=== PATIENT | female | born 1975 | race Two or more races ===

== ENCOUNTER 2017-05-21 13:15 | Emergency (ER) | payer OTHER ==
[~2017-05-21] VITALS: Ht 160 cm; Wt 63.5 kg
[2017-05-21] MEDS ORDERED: LIDO:MAALOX:DONNATAL 1:1:1 15 ML SINGLE DOSE SWSW ONE (13:45)
--- NOTE | 2017-05-21 13:58 | EKG ---
[facility] [address] [place] [address] Test Date: 2017-05-21 Test Time: 13:50:59 Pat Name: JOSE ARMANDO CALDERON Department: Room: Gender: F [employer]: : [id number] Requested By: TRAN ANDRADE Order Number: [id number] Reading MD: Wyatt Gonzalez Measurements Intervals [place] Rate: 73 P: 0 DC: 138 QRS: -7 QRSD: 72 T: 27 QT: 382 QTc: 424 Interpretive Statements SINUS RHYTHM Electronically Signed On 05-24-2017 11:25:27 CDT by Wyatt Gonzalez
[2017-05-21 14:04] LABS: CALCIUM 9.4 mg/dL (8.5-10.1); CREATININE 0.6 mg/dL (0.6-1.0); GFR 110.2; POTASSIUM 3.8 mmol/L (3.5-5.1)
[2017-05-21 14:07] LABS: BILIRUBIN,URINE NEGATIVE (NEG); GLUCOSE,URINE NEGATIVE (NEG); NITRITE,URINE NEGATIVE (NEG); PH,URINE 5.5; PROTEIN,URINE NEGATIVE (NEG-TRACE); UROBILINOGEN,URINE 0.2 mg/dL (0.2 mg/dL)
[2017-05-21 14:08] LABS: BASO % 0 % (0-3); EOS % 1 % (0-3); HEMATOCRIT 42.3 % (36.0-47.0); HEMOGLOBIN 13.8 g/dL (12.0-15.5); LYMPH # 1.5 x10^3/uL (1.0-4.8); LYMPH % 9 % (24-48); MEAN CORPUSCULAR HEMOGLOBIN 28 pg (25-35); MEAN CORPUSCULAR HGB CONC 33 g/dL (31-37); MEAN CORPUSCULAR VOLUME 86 fL (79-100); MONO % 4 % (0-9); NEUT % 87 % (31-73); PLATELET COUNT 276 x10^3/uL (140-400); RED BLOOD COUNT 4.92 x10^6/uL (3.50-5.40); WHITE BLOOD COUNT 16.6 x10^3/uL (4.0-11.0)
[2017-05-21 14:10] LABS: ALBUMIN 4.3 g/dL (3.4-5.0); ALBUMIN/GLOBULIN RATIO 1.2 (1.0-1.7); TOTAL BILIRUBIN 0.5 mg/dL (0.2-1.0); TOTAL PROTEIN 7.8 g/dL (6.4-8.2)
[2017-05-21 14:23] LABS: BACTERIA,URINE 0 /HPF (0-FEW); SQUAMOUS EPITHELIAL CELL,UR MOD /LPF
[2017-05-21 15:28] LABS: % EOS 1 % (0-5); PLT ESTIMATE ADEQUATE (ADEQUATE)
[2017-05-21 15:59] VITALS: BP 115/76
--- NOTE | 2017-05-21 16:05 | RAD ---
Indication right upper quadrant abdominal pain Grayscale imaging was performed. Examination was targeted to the right upper quadrant. The gallbladder appears normal. The visualized pancreas appears unremarkable. The abdominal aorta and visualized inferior vena cava appear normal. No focal mass is seen in the visualized liver. The right kidney appears unremarkable. The common bile duct diameter of approximately 2 mm is normal. IMPRESSION: Unremarkable right upper quadrant abdominal ultrasound exam
[2017-05-21] MEDS ORDERED: RANI150T6 PO (16:40)
--- NOTE | 2017-05-21 16:40 | PHYS DOC ---
Past Medical History Past Medical History: No Pertinent History Past Surgical History: , Tubal ligation Alcohol Use: Occasionally Drug Use: None Adult General Chief Complaint Chief Complaint: ABDOMINAL PAIN HPI HPI Patient is a 41 year old female who presents with abdominal pain. The patient reports one day history of epigastric abdominal pain. She feels nauseated. Denies associated fevers or chills, vomiting, diarrhea or constipation, dysuria or hematuria, vaginal bleeding or discharge. She denies previous history of similar symptoms. History of . No other known past medical history. Review of Systems Review of Systems Constitutional: Denies fever or chills HENT: Denies nasal congestion or sore throat Respiratory: Denies cough or shortness of breath Cardiovascular: Denies chest pain or edema GI: Reports abdominal pain, nausea, denies vomiting, bloody stools or diarrhea : Denies dysuria or hematuria Musculoskeletal: Denies back pain or joint pain Integument: Denies rash or skin lesions Neurologic: Denies headache Current Medications Current Medications Current Medications Medications (Trade) Dose Ordered Sig/Richard Start Time Stop Time Status Last Admin Dose Admin Multi-Ingredient Mouthwash/Gargle (Gi Cocktail Single Dose) 15 ml 1X ONCE 05/21/17 13:45 05/21/17 13:46 DC 05/21/17 13:51 15 ML Allergies Allergies Allergies Coded Allergies Type Severity Reaction Last Updated Verified No Known Drug Allergies 05/21/17 No Physical Exam Physical Exam Constitutional: Well developed, well nourished, no acute distress, non-toxic appearance. HENT: Normocephalic, atraumatic, bilateral external ears normal, oropharynx moist, nose normal. Eyes: conjunctiva normal, no discharge. Neck: supple, no stridor. Cardiovascular: RRR, no murmurs, no edema. Lungs & Thorax: LCTAB, no wheezing, no respiratory distress. Abdomen: soft, epigastric tenderness without rebound/guarding, no masses or pulsatile masses, nondistended. Skin: Warm, dry, no erythema, no rash. Back: No CVA tenderness. Extremities: No tenderness, no edema. Neurologic: Alert and oriented X 3, no focal deficits noted. Psychologic: Affect normal, judgement normal, mood normal. Current Patient Data Vital Signs Vital Signs Date Time Temp Pulse Resp B/P (MAP) Pulse Ox O2 Delivery O2 Flow Rate FiO2 05/21/17 15:59 80 115/76 (89) 99 Room Air 05/21/17 13:20 98.8 16 98.8 Lab Values Laboratory Tests Test 05/21/17 13:28 05/21/17 13:45 POC Urine HCG, Qualitative Hcg negative (Negative) White Blood Count 16.6 x10^3/uL (4.0-11.0) H Red Blood Count 4.92 x10^6/uL (3.50-5.40) Hemoglobin 13.8 g/dL (12.0-15.5) Hematocrit 42.3 % (36.0-47.0) Mean Corpuscular Volume 86 fL (79-100) Mean Corpuscular Hemoglobin 28 pg (25-35) Mean Corpuscular Hemoglobin Concent 33 g/dL (31-37) Red Cell Distribution Width 15.0 % (11.5-14.5) H Platelet Count 276 x10^3/uL (140-400) Neutrophils (%) (Auto) 87 % (31-73) H Lymphocytes (%) (Auto) 9 % (24-48) L Monocytes (%) (Auto) 4 % (0-9) Eosinophils (%) (Auto) 1 % (0-3) Basophils (%) (Auto) 0 % (0-3) Neutrophils # (Auto) 14.4 x10^3uL (1.8-7.7) H Lymphocytes # (Auto) 1.5 x10^3/uL (1.0-4.8) Monocytes # (Auto) 0.6 x10^3/uL (0.0-1.1) Eosinophils # (Auto) 0.1 x10^3/uL (0.0-0.7) Basophils # (Auto) 0.0 x10^3/uL (0.0-0.2) Segmented Neutrophils % 86 % (35-66) H Band Neutrophils % 6 % (0-9) Lymphocytes % 4 % (24-48) L Monocytes % 3 % (0-10) Eosinophils % 1 % (0-5) Platelet Estimate Adequate (ADEQUATE) Basophilic Stippling Present Urine Collection Type Unknown Urine Color Yellow Urine Clarity Clear Urine pH 5.5 Urine Specific [place] 1.025 Urine Protein Negative mg/dL (NEG-TRACE) Urine Glucose (UA) Negative mg/dL (NEG) Urine Ketones (Stick) Negative mg/dL (NEG) Urine Blood Moderate (NEG) Urine Nitrite Negative (NEG) Urine Bilirubin Negative (NEG) Urine Urobilinogen Dipstick 0.2 mg/dL (0.2 mg/dL) Urine Leukocyte Esterase Negative (NEG) Urine RBC 6-10 /HPF (0-2) Urine WBC 1-4 /HPF (0-4) Urine Squamous Epithelial Cells Mod /LPF Urine Bacteria 0 /HPF (0-FEW) Urine Mucus Marked /LPF Sodium Level 135 mmol/L (136-145) L Potassium Level 3.8 mmol/L (3.5-5.1) Chloride Level 102 mmol/L (98-107) Carbon Dioxide Level 27 mmol/L (21-32) Anion Gap 6 (6-14) Blood Urea Nitrogen 10 mg/dL (7-20) Creatinine 0.6 mg/dL (0.6-1.0) Estimated GFR (Cockcroft-Gault) 110.2 BUN/Creatinine Ratio 17 (6-20) Glucose Level 107 mg/dL (70-99) H Calcium Level 9.4 mg/dL (8.5-10.1) Total Bilirubin 0.5 mg/dL (0.2-1.0) Aspartate Amino Transferase (AST) 54 U/L (15-37) H Alanine Aminotransferase (ALT) 106 U/L (14-59) H Alkaline Phosphatase 69 U/L (46-116) Troponin I Quantitative < 0.017 ng/mL (0.000-0.055) Total Protein 7.8 g/dL (6.4-8.2) Albumin 4.3 g/dL (3.4-5.0) Albumin/Globulin Ratio 1.2 (1.0-1.7) Lipase 240 U/L (73-393) Laboratory Tests 05/21/17 13:45 Laboratory Tests 05/21/17 13:45 EKG EKG interpreted by me: NSR rate 73, no acute ST/T wave changes, normal intervals, no ectopy.[] Radiology/Procedures Radiology/Procedures PROCEDURE: ABDOMEN LTD Indication right upper quadrant abdominal pain Grayscale imaging was performed. Examination was targeted to the right upper quadrant. The gallbladder appears normal. The visualized pancreas appears unremarkable. The abdominal aorta and visualized inferior vena cava appear normal. No focal mass is seen in the visualized liver. The right kidney appears unremarkable. The common bile duct diameter of approximately 2 mm is normal. IMPRESSION: Unremarkable right upper quadrant abdominal ultrasound exam DICTATED and SIGNED BY: MEÑO KOCH MD DATE: 05/21/17 1600[] Course & Med Decision Making Course & Med Decision Making Pertinent Labs and Imaging studies reviewed. (See chart for details) The patient presents with abdominal pain. Gave GI cocktail. Obtained labs which show mild transaminitis. Obtained ultrasound of the right upper quadrant which is negative for acute process. Patient felt better after treatment here and was comfortable with discharge home. Recommend rest, by mouth hydration, Tylenol or ibuprofen, Zantac. Follow-up with primary care in 2-3 days if not improving. May require GI evaluation if not improving. Return to the emergency department for high fever, severe pain, uncontrolled vomiting, any otherwise worsening condition. Discharged home in stable condition. [] Dragon Disclaimer Dragon Disclaimer This electronic medical record was generated, in whole or in part, using a voice recognition dictation system. Departure Departure Impression: Primary Impression: Abdominal pain Additional Impression: Transaminitis Disposition: 01 HOME, SELF-CARE Condition: STABLE Referrals: FARNAZ POND MD (PCP) Patient Instructions: Abdominal Pain, [id number] Additional Instructions: You were seen in the emergency department today for abdominal pain. Your liver tests were slightly high but you had no abnormal findings on ultrasound. Please rest, drink fluids to stay hydrated, take Tylenol or ibuprofen for pain. Also use Zantac for pain. Follow-up with primary care physician in 2-3 days. If your symptoms continue you may need to see a GI specialist. Return to the emergency department for high fever, severe pain, uncontrolled vomiting, any otherwise worsening condition. Scripts Ranitidine Hcl (ZANTAC) 150 Mg Tablet 150 MG PO DAILY for 15 Days, #15 TAB Prov: TRAN ANDRADE MD 05/21/17 Problem Qualifiers TRAN ANDRADE MD May 21, 2017 16:40
== END 2017-05-21 16:50 | disposition home or self-care (01) ==
LOC: ER 13:15
DX: R10.13 Epigastric pain (principal); R74.0 Nonspecific elevation of levels of transaminase and lactic acid dehydrogenase [LDH]; Z98.51 Tubal ligation status; Z98.890 Other specified postprocedural states
CPT/HCPCS: 36415; 76705; 80053; 81001; 81025; 83690; 84484; 85007; 85025; 93005; 99285-25

== ENCOUNTER 2019-03-09 15:14 | Emergency (ER) | payer OTHER ==
[~2019-03-09] VITALS: Ht 160 cm; Wt 59.0 kg
[~2019-03-09 15:14] MED LIST: RANI-376 PO
[2019-03-09 15:27] VITALS: BP 138/65
[2019-03-09] MEDS ORDERED: METH4TAB2 PO (15:36)
[2019-03-09] MEDS ORDERED: HYDR-3164 PO (15:36)
--- NOTE | 2019-03-09 15:40 | PHYS DOC ---
Past Medical History Past Medical History: No Pertinent History Past Surgical History: , Tubal ligation Alcohol Use: Occasionally Drug Use: None Adult General Chief Complaint Chief Complaint: Neck Pain [facility] HPI Patient is a 43 year old female who presents with right neck pain that radiates down the outer right arm and down into the fourth and fifth fingers. Patient states this been going on for a month. Patient states she first went to her primary care a month ago and then 5 days ago. They have put her on Flexeril and meloxicam she is to start physical therapy this coming week. Patient states the pain is sharp shooting and tingling at times. She states her primary care diagnosed her with attention her. Patient's rating her pain at a 8 out of 10. Patient is here today because she states that the medication is not helping. Review of Systems Review of Systems Constitutional: Denies fever or chills [] Eyes: Denies change in visual acuity, redness, or eye pain [] HENT: Denies nasal congestion or sore throat [] Respiratory: Denies cough or shortness of breath [] Cardiovascular: No additional information not addressed in HPI [] GI: Denies abdominal pain, nausea, vomiting, bloody stools or diarrhea [] : Denies dysuria or hematuria [] Musculoskeletal: right neck down right arm pain. Denies back pain or joint pain [] Integument: Denies rash or skin lesions [] Neurologic: Denies headache, focal weakness or sensory changes [] Endocrine: Denies polyuria or polydipsia [] All other systems were reviewed and found to be within normal limits, except as documented in this note. Allergies Allergies Allergies Coded Allergies Type Severity Reaction Last Updated Verified No Known Drug Allergies 05/21/17 No Physical Exam Physical Exam Constitutional: Well developed, well nourished, no acute distress, non-toxic appearance. [] HENT: Normocephalic, atraumatic, bilateral external ears normal, oropharynx moist, no oral exudates, nose normal. [] Eyes: PERRLA, EOMI, conjunctiva normal, no discharge. [] Neck: Normal range of motion, no tenderness, supple, no stridor. [] Cardiovascular:Heart rate regular rhythm, no murmur [] Lungs & Thorax: Bilateral breath sounds clear to auscultation [] Abdomen: Bowel sounds normal, soft, no tenderness, no masses, no pulsatile masses. [] Skin: Warm, dry, no erythema, no rash. [] Back: No tenderness, no CVA tenderness. [] Extremities: Right upper arm and neck tenderness, no cyanosis, no clubbing, ROM intact, no edema. [] Neurologic: Alert and oriented X 3, normal motor function, normal sensory function, no focal deficits noted. [] Psychologic: Affect normal, judgement normal, mood normal. [] EKG EKG [] Radiology/Procedures Radiology/Procedures [] Course & Med Decision Making Course & Med Decision Making Patient is a 43 year old female who presents with right neck pain that radiates down the outer right arm and down into the fourth and fifth fingers. Patient states this been going on for a month. Patient states she first went to her primary care a month ago and then 5 days ago. They have put her on Flexeril and meloxicam she is to start physical therapy this coming week. Patient states the pain is sharp shooting and tingling at times. She states her primary care diagnosed her with attention her. Patient's rating her pain at a 8 out of 10. Patient is here today because she states that the medication is not helping. Alert and oriented. Patient has no weaknesses and extremities. There is no swelling or redness in any extremities. Cap refill less than 3 seconds. Bilateral radial pulses equal, strong and palpable. Skin is pink warm and dry. Patient has slight tenderness to her right back down into the right upper arm out patient. Patient is to stop using Flexeril because she states that doesn't help anyway. Patient is prescribed Medrol Dosepak and [place]. Patient to follow-up with her doctor and go to physical therapy as scheduled. Dragon Disclaimer Dragon Disclaimer This electronic medical record was generated, in whole or in part, using a voice recognition dictation system. Departure Departure Impression: Primary Impression: Cervical radicular pain Disposition: 01 HOME, SELF-CARE Condition: STABLE Referrals: FARNAZ POND MD (PCP) Patient Instructions: Cervical Radiculopathy Additional Instructions: Try using a heating pad, or Aspercreme with lidocaine. Go to physical therapy as scheduled. taking Flexeril. Take medications as prescribed. Scripts Hydrocodone/Apap 5-325 (NORCO 5-325 TABLET) 1 Each Tablet 1 TAB PO PRN Q6HRS PRN for PAIN, #10 TAB 0 Refills Prov: HALIE IRBY CUSTODIAL AIDE 03/09/19 Methylprednisolone (MEDROL) 4 Mg Tab.ds.pk 1 PKG PO UD, #1 PKG Prov: HALIE IRBY CUSTODIAL AIDE 03/09/19 HALIE IRBY APRN Mar 09, 2019 15:40
== END 2019-03-09 15:54 | disposition home or self-care (01) ==
LOC: ER 15:14
DX: M54.12 Radiculopathy, cervical region (principal); M79.601 Pain in right arm; Z98.51 Tubal ligation status; Z98.890 Other specified postprocedural states
CPT/HCPCS: 99283

== ENCOUNTER 2020-04-28 21:25 | Emergency (ER) | payer OTHER ==
[~2020-04-28] VITALS: Ht 162.6 cm; Wt 62.7 kg
[~2020-04-28 21:25] MED LIST changes: +HYDR-3164 PO; +METH4TAB2 PO
[2020-04-28] MEDS ORDERED: METH4TAB2 PO (23:13)
[2020-04-28] MEDS ORDERED: GABA300C18 PO (23:13)
--- NOTE | 2020-04-28 23:13 | PHYS DOC ---
Past Medical History Past Medical History: Other Additional Past Medical Histor: CERVICAL STENOSIS, SCOLIOSIS, NEUROPATHY, CARPEL TUNNEL. Past Surgical History: Smoking Status: Never Smoker Alcohol Use: Occasionally Drug Use: None General Adult EDM: Chief Complaint: OTHER COMPLAINTS HPI: HPI: Patient is a 44-year-old female who presents to the emergency room complaining of intermittent tingling in her left arm, neck pain, and intermittently tingling in her legs. She is not had any trauma. She states she has chronic cervical spine stenosis. She states that this started after starting a new job. 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 She denies any weakness, fever, chills, sweats. Review of Systems: Review of Systems: General: Denies fever, chills, sweats, fatigue Eyes: Denies drainage, blurred vision, eye redness HENT: Denies rhinorrhea, sore throat, earache Respiratory: Denies cough, shortness of breath, wheezing Cardiac: Denies edema, palpitations, chest pain GI: Denies abdominal pain, Nausea, vomiting MSK: Reports neck pain, denies back pain Skin: Denies rash, jaundice Neuro: Denies headache, dizziness Psychiatric: Denies SI/HI Heart Score: Risk Factors: Risk Factors: DM, Current or recent (<one month) smoker, HTN, HLP, family history of CAD, obesity. Risk Scores: Score 0 - 3: 2.5% MACE over next 6 weeks - Discharge Home Score 4 - 6: 20.3% MACE over next 6 weeks - Admit for Clinical Observation Score 7 - 10: 72.7% MACE over next 6 weeks - Early Invasive Strategies Allergies: Allergies: Allergies Coded Allergies Type Severity Reaction Last Updated Verified No Known Drug Allergies 05/21/17 No Physical Exam: PE: General: Awake, alert, NAD. Well Nourished, well hydrated. Cooperative HEENT: Atraumatic, EOMI, PERRL, airway patent, moist oral mucosa Neck: Supple, trachea midline Respiratory: CTA bilaterally, normal effort, no wheezing/crackles CV: RRR, no murmur, cap refill <2 GI: Soft, nondistended, nontender, no masses MSK: No obvious deformities Skin: Warm, dry, intact Neuro: A&O x3, speech NL, sensory and motor grossly intact, no focal deficits Psych: Normal affect, normal mood, not suicidal or homicidal Current Patient Data: Vital Signs: Vital Signs Date Time Temp Pulse Resp B/P (MAP) Pulse Ox O2 Delivery O2 Flow Rate FiO2 04/28/20 22:29 98.8 71 16 144/84 (104) 100 Room Air 98.8 EKG: EKG: [] Radiology/Procedures: Radiology/Procedures: [] Course & Med Decision Making: Course & Med Decision Making Pertinent Labs and Imaging studies reviewed. (See chart for details) Patient is a 44-year-old female who presents to the emergency room complaining of intermittent tingling and sharp shooting pains down her arm. She does have a long history of cervical spine stenosis. She likely has cervical radiculopathy. We will place her on steroids and Neurontin. Patient does not have any fever, history of IV drug abuse, neurologic deficits that would be concerning for other causes of paresthesias. Patient's test results and vitals while in the ED were fully reviewed and discussed with the patient. Patient is stable and at this time does not need admission to the hospital. We have discussed strict return precautions and the importance of following up with their Primary Care Physician. Patient stated understanding and was given an opportunity to ask any questions. Patient is in agreement with plan. Dragon Disclaimer: Dimple Disclaimer: This electronic medical record was generated, in whole or in part, using a voice recognition dictation system. Departure Departure Impression: Primary Impression: Cervical radicular pain Disposition: HOME, SELF-CARE Condition: STABLE Referrals: FARNAZ POND MD (PCP) Patient Instructions: Cervical Radiculopathy Scripts Gabapentin (GABAPENTIN ) 300 Mg Capsule 300 MG PO TID for NEUROGENIC PAIN for 30 Days, #90 CAP Prov: REYNALDO ESPANA MD 04/28/20 Methylprednisolone (MEDROL) 4 Mg Tab.ds.pk 1 PKG PO UD for inflammation, #1 PKG Prov: REYNALDO ESPANA MD 04/28/20 Justicifation of Admission Dx: Justifications for Admission: Justification of Admission Dx: N/A REYNALDO ESPANA MD Apr 28, 2020 23:13
[2020-04-29 00:23] VITALS: BP 144/80
== END 2020-04-28 23:26 | disposition home or self-care (01) ==
LOC: ER 21:25
DX: M54.12 Radiculopathy, cervical region (principal); G89.29 Other chronic pain
CPT/HCPCS: 99283